=== PATIENT | female | born 1955 ===

== ENCOUNTER 2025-03-17 05:41 | Day surgery (SDC) | payer OTHER ==
[~2025-03-17 05:41] MED LIST: AVAPRO75 MG PO; FIORICET 50-301 EACH PO; PREMARIN0.45 MG PO; PREVACID15 MG PO; SYSTANE GEL EYE10 ML OP
[2025-03-17] MEDS ORDERED: ONDANSETRON HCL 2 MG/ML VIAL IV ONE (10:15)
[2025-03-17] MEDS ORDERED: DIPHENHYDRAMINE HCL 50 MG/ML VIAL 1ML IV ONE ×2 (10:15→10:30)
[2025-03-17] MEDS ORDERED: fentaNYL CITRATE 50 MCG/ML AMPUL IV PUSH ONE (10:15)
[2025-03-17] MEDS ORDERED: MIDAZOLAM HCL 2 MG/2 ML VIAL IV ONE (10:15)
== END 2025-03-17 11:00 | disposition home or self-care (01) ==
LOC: AMB-ENDOS 05:41 → CIR.AMB 13:00
PROVIDERS: ATTEND Colon & Rectal Surgery
DX: D12.2 Benign neoplasm of ascending colon (principal); K63.5 Polyp of colon